=== PATIENT | female | born 1960 | race Hispanic/Latino ===

== ENCOUNTER → 2018-08-11 | Outpatient (CLI) | payer BC ==
--- NOTE | 2018-08-11 19:33 | Diagnostic Imaging Report ---
Solid-phase gastric emptying study Reason for examination: Epigastric pain; food found in stomach during EGD procedure. Patient states she has had digestion issues for years. The protocol used for this study is based on the Consensus Recommendations for Gastric Scintigraphy by the [employer] and the Society of [employer]. Clinical information: The patient is diabetic; blood sugar this morning was 139 mg/dL. The patient has not had previous gastrointestinal surgery other than cholecystectomy in 1986. The patient is not on any medications expected to affect gastric motility. The patient has been fasting for at least 6 hours prior to this exam. Radiopharmaceutical: Tc-99m sulfur colloid 1 mCi Report: The radiopharmaceutical was added to 1/2 cup egg whites that were then prepared and served with 2 pieces of white bread toasted, 30 grams of jam and 4 ounces of water. The patient took the meal orally without difficulty. Images were obtained of the abdomen in the anterior and posterior projections at 10 minutes post the meal and at 1and 2 hours. Uptake was determined from the geometric mean of the anterior and posterior counts and the counts were corrected for decay of the radiolabel. The percent gastric retention of the labeled meal at: 1 hour was 43% (normal 30-90%) 2 hours was 16% (normal <60%; if retention is less than 35% at 2 hours, study is considered normal). Impression: The pattern of gastric emptying is normal. Scan findings do not support the clinical diagnosis of gastroparesis. Signed by: Dr. Hannah Medina M.D. on 08/11/2018 7:30 PM
== END ==
LOC: NM 08:56
PROVIDERS: ATTEND Internal Medicine Gastroenterology
DX: R10.13 Epigastric pain (principal); R12 Heartburn; E11.9 Type 2 diabetes mellitus without complications; I10 Essential (primary) hypertension; E66.3 Overweight; Z71.3 Dietary counseling and surveillance
CPT/HCPCS: 36415; 78264; 82948; A9541